=== PATIENT | male | born 1970 | race Caucasian/White ===

== ENCOUNTER 2016-12-15 15:29 | Emergency (ER) | payer OTHER ==
[2016-12-15 16:04] VITALS: BP 126/67; PULSE 54; RESP 14; TEMP 98.2; O2SAT 95
[2016-12-15] MEDS ORDERED: IPRATROPIUM/ALBUTEROL 3 ML DEYVIAL IH ONE (16:34)
--- NOTE | 2016-12-15 16:36 | UCPHY ---
H & P Patient Type: New Chief Complaint Nursing Narrative: congestion, severe cough, SOB since Friday12/10/16. Time Seen by Provider: 12/15/16 16:28 HPI/ROS: CHIEF COMPLAINT: Cough HISTORY OF PRESENT ILLNESS: The patient is a 46-year-old healthy man who comes to the Urgent Care complaining of a persistent cough alternating with runny nose and sore throat for the last 3 months. He states that over the last week it has primarily been a cough. He has not had a fever. No chills. No GI symptoms. He is up-to-date on his tetanus and pertussis vaccine. He does not have any history of respiratory disease. REVIEW OF SYSTEMS: Constitutional: denies: chills, fever, recent illness, recent injury EENTM: See HPI Respiratory: See HPI Cardiac: denies: chest pain, irregular heart rate, lightheadedness, palpitations Gastrointestinal/Abdominal: denies: abdominal pain, diarrhea, nausea, vomiting, blood streaked stools Genitourinary: denies: dysuria, frequency, hematuria, pain Musculoskeletal: denies: joint pain, muscle pain Skin: denies: lesions, rash, jaundice, bruising Neurological: denies: headache, numbness, paresthesia, tingling, dizziness, weakness Hematologic/Lymphatic: denies: blood clots, easy bleeding, easy bruising Immunologic/allergic: denies: HIV/AIDS, transplant EXAM: GENERAL: Well-appearing, well-nourished and in no acute distress. HEAD: Atraumatic, normocephalic. EYES: Pupils equal round and reactive to light, extraocular movements intact, sclera anicteric, conjunctiva are normal. ENT: TMs normal, nares patent, oropharynx clear without exudates. Moist mucous membranes. NECK: Normal range of motion, supple without lymphadenopathy or JVD. LUNGS: Bilateral mild expiratory wheeze, HEART: Regular rate and rhythm without murmurs, rubs or gallops. ABDOMEN: Soft, nontender, normoactive bowel sounds. No guarding, no rebound. No masses appreciated. BACK: No CVA tenderness, no spinal tenderness, step-offs or deformities EXTREMITIES: Normal range of motion, no pitting or edema. No clubbing or cyanosis. NEUROLOGICAL: Cranial nerves II through XII grossly intact. Normal speech, normal gait. 5/5 strength, normal movement in all extremities, normal sensation PSYCH: Normal mood, normal affect. SKIN: Warm, dry, normal turgor, no visible rashes or lesions. Source: Patient Exam Limitations: No limitations - Personal History Current Tetanus Diphtheria and Acellular Pertussis (TDAP): Yes - Medical/Surgical History Hx Asthma: No Hx Chronic Respiratory Disease: No Hx Diabetes: No Hx Cardiac Disease: No Hx Renal Disease: No Hx Cirrhosis: No Hx Alcoholism: No Hx HIV/AIDS: No Hx Splenectomy or Spleen Trauma: No Other PMH: walking pneumonia - Family History Significant Family History: Heart disease - Social History Smoking Status: Never smoked Alcohol Use: Sober Drug Use: None Constitutional: Initial Vital Signs Temperature (C) 36.8 C 12/15/16 16:01 Heart Rate 54 L 12/15/16 16:01 Respiratory Rate 14 12/15/16 16:01 Blood Pressure 126/67 H 12/15/16 16:01 O2 Sat (%) 95 12/15/16 16:01 O2 Delivery Mode Room Air Allergies/Adverse Reactions: No Known Allergies Allergy (Unverified 12/15/16 16:01) Home Medications: Medication Instructions Recorded AZITHROMYCIN [Z-PACK] 250 mg PO DAILY #4 tab 12/15/16 Albuterol [Proventil] 17 gm IH Q4-6PRN PRN #1 aerosol 12/15/16 Medical Decision Making - Diagnostics Imaging: X-ray: chest x-ray was obtained. I viewed the images myself on the PACS system. My interpretation of the images is: negative for acute disease . The radiologist interpretation is negative. ED Course/Re-evaluation: We discussed the x-ray results. The patient is relieved. He feels much better after albuterol. I will treat him with a dose of Decadron as well as azithromycin for bronchitis. He agrees with this plan and declines further workup or testing at this time. Differential Diagnosis: Partial list of the Differential diagnosis considered include but were not limited to; bronchitis, strep throat, upper respiratory tract infection, allergies and although unlikely based on the history and physical exam, I also considered sepsis, pneumonia, meningitis, endocarditis. I discussed these differential diagnoses and the plan with the patient as well as the usual and expected course. The patient understands that the diagnosis is provisional and that in medicine we are not always correct and that further workup is often warranted. Usual and customary warnings were given. All of the patient's questions were answered. The patient was instructed to return to the emergency department should the symptoms at all worsen or return, otherwise to followup with the physician as we discussed. - Data Points Medications Given: Discontinued Medications Albuterol/Ipratropium (Duoneb) 3 ml IH EDNOW ONE Stop: 12/15/16 16:35 Last Admin: 12/15/16 16:40 Dose: 3 ml Azithromycin (Zithromax) 500 mg PO EDNOW ONE PRN Reason: Protocol Stop: 12/15/16 17:21 Last Admin: 12/15/16 17:30 Dose: 500 mg Dexamethasone (Decadron) 10 mg PO EDNOW ONE Stop: 12/15/16 17:21 Last Admin: 12/15/16 17:30 Dose: 10 mg Departure - Departure Disposition: Home, Routine, Self-Care Clinical Impression: Bronchitis Condition: Fair Instructions: Acute Bronchitis (ED) Referrals: NONE *PRIMARY CARE P,. [Primary Care Provider] - As per Instructions GLENDY RAMOS [Non Staff and Non MD] - As per Instructions Prescriptions: Albuterol [Proventil] 17 gm IH Q4-6PRN PRN #1 aerosol PRN Reason: Cough, Moderate AZITHROMYCIN [Z-PACK] 250 mg PO DAILY #4 tab - PQRS PQRS Measurement: Not applicable
[2016-12-15] MEDS ORDERED: DEXAMETHASONE 4 MG TAB PO ONE (17:20)
[2016-12-15] MEDS ORDERED: AZITHROMYCIN 250 MG TAB PO ONE (17:20)
== END 2016-12-15 17:43 | disposition home or self-care (01) ==
LOC: CED 15:29
DX: J20.9 Acute bronchitis, unspecified (principal)
CPT/HCPCS: 71020-PO; 99204-PO; G0463-PO